=== PATIENT | female | born 1935 | race Caucasian/White ===

== ENCOUNTER → 2017-04-10 05:00 | Outpatient (REF) | payer MEDICARE, OTHER, SELFPAY ==
[2017-04-10 11:37] LABS: Hemoglobin 12.4 g/dl (12.0-15.0); Mean Corp Hgb Conc 32.6 g/gl (32-36); Mean Corpuscular Hgb 33.9 pg (27.0-32.0); Mean Corpuscular Volume 103.8 fL (81-99); Platelet Count 130 K/mm3 (150-450); RBC Distribution Width CV 14.9 % (11.6-14.6); RBC Distribution Width SD 55.7 fl (35.1-43.9); Red Blood Count 3.66 M/mm3 (4.2-5.4); White Blood Count 8.1 K/mm3 (4.4-11.0)
[2017-04-10 11:41] LABS: Scan Indicated on CBC? Y/N NO
[2017-04-10 11:52] LABS: Anion Gap 9 (5-15); BUN 53 mg/dL (7-18); BUN/Creat Ratio 44.9 RATIO (10-20); Calcium,Total 8.9 mg/dL (8.5-10.1); Chloride 99 mmol/L (98-107); Cholesterol 122 mg/dL (200); Creatinine, Serum 1.18 mg/dL (0.55-1.02); EST Glomerular Filtration Rate 47 mL/min (>60); Est Glom Filt Rate - Afr Amer 57 mL/min (>60); Glucose 300 mg/dL (70-110); High Density Lipoprotein 42 mg/dL; Potassium 3.2 mmol/L (3.5-5.1); Sodium Level 139 mmol/L (136-145); Triglycerides 102 mg/dL; Very Low Density Lipoprotein 20 mg/dL (5-40)
[2017-04-10 12:14] LABS: Hemoglobin A1c 8.7 % (4.2-6.3)
== END ==
LOC: OLS.WHLTSB 05:00
PROVIDERS: Visit Provider Family Medicine
DX: E11.9 Type 2 diabetes mellitus without complications (principal); I10 Essential (primary) hypertension; E78.5 Hyperlipidemia, unspecified; I25.10 Atherosclerotic heart disease of native coronary artery without angina pectoris
CPT/HCPCS: 36415; 80048; 80061; 83036; 85027

== ENCOUNTER → 2017-05-18 05:00 | Outpatient (REF) | payer MEDICARE, OTHER, SELFPAY ==
[2017-05-18 09:23] LABS: Absolute Neutrophil Count 9.4 X10^3/uL (2.0-7.7); Basophil# 0.02 X10^3/uL; Basophil% 0.2 % (0-1); Eosinophil# 0.23 X10^3/uL; Eosinophils% 1.8 % (0-5); Hematocrit 32.5 % (37-47); Hemoglobin 10.5 g/dl (12.0-15.0); Lymphocyte % 18.4 % (19-41); Mean Corp Hgb Conc 32.3 g/gl (32-36); Mean Corpuscular Hgb 32.8 pg (27.0-32.0); Mean Corpuscular Volume 101.6 fL (81-99); Monocyte# 0.98 X10^3/uL; Monocyte% 7.5 % (0-10); Neutrophil # 9.43 X10^3/uL (2.7-7.7); POSITIVE COUNT NO; POSITIVE DIFFERENTIAL NO; POSITIVE MORPHOLOGY NO; Platelet Count 115 K/mm3 (150-450); RBC Distribution Width SD 59.3 fl (35.1-43.9); White Blood Count 13.1 K/mm3 (4.4-11.0)
[2017-05-18 09:34] LABS: Anion Gap 9 (5-15); BUN 71 mg/dL (7-18); BUN/Creat Ratio 40.6 RATIO (10-20); Calcium,Total 8.5 mg/dL (8.5-10.1); Chloride 101 mmol/L (98-107); Creatinine, Serum 1.75 mg/dL (0.55-1.02); EST Glomerular Filtration Rate 30 mL/min (>60); Est Glom Filt Rate - Afr Amer 36 mL/min (>60); Glucose 77 mg/dL (74-106); Potassium 3.7 mmol/L (3.5-5.1); Sodium Level 139 mmol/L (136-145)
== END ==
LOC: OLS.WHLTSB 05:00
PROVIDERS: Visit Provider Family Medicine
DX: I10 Essential (primary) hypertension (principal); E11.9 Type 2 diabetes mellitus without complications; I25.10 Atherosclerotic heart disease of native coronary artery without angina pectoris
CPT/HCPCS: 36415; 80048; 85025

== ENCOUNTER → 2017-06-06 05:00 | Outpatient (REF) | payer MEDICARE, OTHER, SELFPAY ==
[2017-06-06 09:03] LABS: Anion Gap 8 (5-15); BUN 40 mg/dL (7-18); BUN/Creat Ratio 42.1 RATIO (10-20); Chloride 104 mmol/L (98-107); Creatinine, Serum 0.95 mg/dL (0.55-1.02); EST Glomerular Filtration Rate 60 mL/min (>60); Est Glom Filt Rate - Afr Amer 73 mL/min (>60); Glucose 70 mg/dL (74-106); Sodium Level 143 mmol/L (136-145)
== END ==
LOC: OLS.WHLTSB 05:00
PROVIDERS: Visit Provider Family Medicine
DX: E11.9 Type 2 diabetes mellitus without complications (principal); I10 Essential (primary) hypertension
CPT/HCPCS: 36415; 80048

== ENCOUNTER → 2017-07-16 05:00 | Outpatient (REF) | payer MEDICARE, OTHER, SELFPAY ==
[2017-07-16 09:24] LABS: Hemoglobin 11.2 g/dl (12.0-15.0); Mean Corp Hgb Conc 32.9 g/gl (32-36); Mean Corpuscular Hgb 33.1 pg (27.0-32.0); Mean Corpuscular Volume 100.6 fL (81-99); Platelet Count 267 K/mm3 (150-450); RBC Distribution Width CV 14.8 % (11.6-14.6); RBC Distribution Width SD 52.4 fl (35.1-43.9); Red Blood Count 3.38 M/mm3 (4.2-5.4); White Blood Count 8.3 K/mm3 (4.4-11.0)
[2017-07-16 09:31] LABS: Scan Indicated on CBC? Y/N NO
== END ==
LOC: OLS.WHLTSB 05:00
PROVIDERS: Visit Provider Family Medicine
DX: L89.619 Pressure ulcer of right heel, unspecified stage (principal)
CPT/HCPCS: 36415; 84134; 85027

== ENCOUNTER → 2017-10-15 05:00 | Outpatient (REF) | payer MEDICARE, OTHER, SELFPAY ==
[2017-10-15 09:25] LABS: Hematocrit 37.5 % (37-47); Hemoglobin 12.5 g/dl (12.0-15.0); Mean Corp Hgb Conc 33.3 g/gl (32-36); Mean Corpuscular Volume 98.9 fL (81-99); Platelet Count 178 K/mm3 (150-450); RBC Distribution Width CV 14.7 % (11.6-14.6); RBC Distribution Width SD 51.7 fl (35.1-43.9); Red Blood Count 3.79 M/mm3 (4.2-5.4); White Blood Count 8.7 K/mm3 (4.4-11.0)
[2017-10-15 09:38] LABS: Scan Indicated on CBC? Y/N NO
[2017-10-15 09:39] LABS: Anion Gap 7 (5-15); BUN 36 mg/dL (7-18); BUN/Creat Ratio 31.9 RATIO (10-20); Calcium,Total 9.3 mg/dL (8.5-10.1); Chloride 101 mmol/L (98-107); Creatinine, Serum 1.13 mg/dL (0.55-1.02); EST Glomerular Filtration Rate 49 mL/min (>60); Est Glom Filt Rate - Afr Amer 60 mL/min (>60); Glucose 135 mg/dL (74-106); Potassium 3.6 mmol/L (3.5-5.1); Sodium Level 139 mmol/L (136-145)
[2017-10-15 09:53] LABS: Hemoglobin A1c 7.5 % (4.2-6.3)
[2017-10-15 14:55] LABS: Cholesterol 112 mg/dL (200); High Density Lipoprotein 39 mg/dL; Triglycerides 95 mg/dL; Very Low Density Lipoprotein 19 mg/dL (5-40)
== END ==
LOC: OLS.WHLTSB 05:00
PROVIDERS: Visit Provider Family Medicine
DX: I25.10 Atherosclerotic heart disease of native coronary artery without angina pectoris (principal); I10 Essential (primary) hypertension; E78.5 Hyperlipidemia, unspecified; E11.9 Type 2 diabetes mellitus without complications
CPT/HCPCS: 36415; 80048; 80061; 83036; 85027

== ENCOUNTER → 2018-03-14 12:00 | Outpatient (REF) | payer MEDICARE, OTHER, SELFPAY ==
--- OUTSIDE RECORDS SUMMARY | 2018-04-30 19:24 | XMS RPT_ITS ---
:1935 Author Organization OHIP Care Team Providers Name Role Phone Marcus Terrazas Attending Unavailable Mk, Marcus Attending Unavailable Terrazas, Marcus Attending Unavailable [facility], [place] [facility] Attending Unavailable Terrazas, Marcus Attending Unavailable Terrazas, Marcus Attending Unavailable Terrazas, Marcus Attending Unavailable Terrazas, Marcus Attending Unavailable Terrazas, Marcus Attending Unavailable PROBLEMS PROBLEMS DATE TYPE CONDITION / CODE ATTENDING STATUS SOURCE 04/04/2018 Unknown N39.0 - Urinary tract Marcus Terrazas infection, site not Community specified / Hospital N39.0(ICD-10) Repository 12/21/2017 Unknown I10 - Essential Marcus Terrazas (primary) Community hypertension / Hospital I10(ICD-10) Repository 12/21/2017 Unknown E11.9 - Type 2 Marcus Terrazas diabetes mellitus Community without complications Hospital / E11.9(ICD-10) Repository 12/21/2017 Unknown E78.5 - Marcus Terrazas Hyperlipidemia, Community unspecified / Hospital E78.5(ICD-10) Repository 07/31/2017 Unknown L89.619 - Pressure Marcus Terrazas Active Ariel ulcer of right heel, Community unspecified stage / Hospital L89.619(ICD-10) Repository 07/10/2017 Unknown 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 Repository without angina pectoris / I25.10(ICD-10) PROCEDURES PROCEDURES No Procedure Records FoundRESULTS RESULTS CBC-COMPLETE BLOOD CNT Collected: 04/17/2018 Status: F Source: ARIEL NO DIFF 6:50 AM [facility] REPOSITORY Order Comment: ROOM 14 TYPE CODE TESTS RESULT OUT OF RANGE REFERENCE UNITS LAB L100.1000 4.4-11.0 K/mm3 Normal WBC 7.7 LAB L100.1200 4.2-5.4 M/mm3 Low RBC 3.59 LAB L100.1300 12.0-15.0 g/dl Low HGB 11.6 LAB L100.1400 37-47 % Normal HCT 37.6 LAB L100.1500 81-99 fL High MCV 104.7 LAB L100.1600 27.0-32.0 pg High MCH 32.3 LAB L100.1700 32-36 g/gl Low MCHC 30.9 LAB L100.1810 11.6-14.6 % High RDW CV 15.7 LAB L100.1820 35.1-43.9 fl High RDW SD 60.3 LAB L100.1900 150-450 K/mm3 Normal PLT 172 LAB L100.2000 6.2-12.0 fl Normal MPV 12.0 Performed By: #### L100.0500 #### [facility] [address] [place], [address] BASIC METABOLIC Collected: 04/17/2018 Status: F Source: ARIEL PROFILE (BMP) 6:50 AM [facility] REPOSITORY Order Comment: ROOM 14 TYPE CODE TESTS RESULT OUT OF RANGE REFERENCE UNITS LAB L501.0100 74-106 mg/dL High GLU 107 Result Comment: Fasting Glucose result from 100 to 125 mg/dL suggests IMPAIRED HOMEOSTASIS per A.D.A. criteria. Please note revised GLUCOSE reference range effective 2017. LAB L501.1000 7-18 mg/dL High BUN 38 LAB L501.1100 0.55-1.02 mg/dL High CREAT,SERUM 1.25 Result Comment: The validity of the calculated GFR AND GFRAA in patients over 70 years has not been determined. Clinical correlation is essential. LAB L501.1110 >60 mL/min Low EST GFR 44 Result Comment: Non- GFR Calc LAB L501.1115 >60 mL/min Low EST GFR - AA 53 Result Comment: GFR Calc LAB L501.1300 10-20 RATIO High BUN/CRE 30.4 LAB L501.2200 8.5-10.1 mg/dL CA Normal 9.1 LAB L501.5300 136-145 mmol/L NA Normal 141 LAB L501.5600 3.5-5.1 mmol/L K Normal 4.5 LAB L501.5900 98-107 mmol/L CL Normal 104 LAB L501.6100 21.0-32.0 mmol/L Normal CO2 30.0 LAB L501.6200 5-15 Normal GAP 7 Performed By: #### L500.2500, L500.4100 #### [facility] [address] [place], [address] LIPID PROFILE Collected: 04/17/2018 Status: F Source: HAPPY 6:50 AM [facility] REPOSITORY Order Comment: ROOM 14 TYPE CODE TESTS RESULT OUT OF RANGE REFERENCE UNITS LAB L501.4900 200 mg/dL Normal CHOL 116 Result Comment: <200 mg/dL Desirable 200-240 mg/dL Borderline >240 mg/dL High Risk LAB L501.5000 mg/dL Normal TRIG 85 Result Comment: The drugs N-Acetylcysteine and Metamizole may falsely depress this assay. Serum Triglycerides Reference Interval Normal <150 mg/dL Borderline high 150 - 199 mg/dL High 200 - 499 mg/dL Very High > or = 500 mg/dL LAB L501.6400 mg/dL Normal HDL 47 Result Comment: The drugs N-Acetylcysteine and Metamizole may falsely depress this assay. Reference Range HDL <40 mg/dL Low HDL Cholesterol HDL >or= 60 mg/dL High HDL Cholesterol LAB L501.6500 0-130 mg/dL Normal LDL 52 LAB L501.6600 5-40 mg/dL Normal VLDL 17 Performed By: #### L500.2500, L500.4100 #### [facility] [address] [place], [address] HEMOGLOBIN A1C Collected: 04/17/2018 Status: F Source: ARIEL 6:50 AM [facility] REPOSITORY Order Comment: ROOM 14 TYPE CODE TESTS RESULT OUT OF RANGE REFERENCE UNITS LAB L501.9985 4.2-6.3 % High HGB A1C 7.4 Performed By: #### L501.9985 #### [facility] [address] [place], [address] Observed: 03/14/2018 Status: F Source: ARIEL CULTURE, URINE 12:00 PM [facility] REPOSITORY VERIFIED COLLECTION METHOD WITH NURSE Urine Culture ORGANISM 1: Presumptive E. coli Gunpowder Count >100,000 Presumptive E. coli: REACTION Amoxacillin/Clavulanic Acid $ 4 S Ampicillin $ 8 S Ampicillin/Sulbactam $ 4 S Cefazolin $ <=4 S Cefepime $ <=1 S Ceftriaxone $ <=1 S Ciprofloxacin $ >=4 R ESBL - Ertapenim $$$ <=0.5 S Gentamicin $ <=1 S Imipenem *NF <=0.25 S Levofloxacin $ >=8 R Nitrofurantoin $ <=16 S Piperacillin/Tazobactam $$ <=4 S Tobramycin $ <=1 S Trimethoprim/Sulfametho $ >=320 R (NF) indicates non-formulary drug at [facility]. Approval by Infectious Disease Specialist required before non-formulary drugs may be ordered and/or dispensed. Performed By: #### M100.0650 #### [facility] [address] [place], [address] Observed: 02/05/2018 Status: F Source: ARIEL CULTURE, URINE 5:00 AM [facility] REPOSITORY Urine Culture Predominent Organism 4500 cfu/mL Presumptive E coli Below infection level. ORGANISM 1: Mixed Gram Pos AND Gram Neg Org Gunpowder Count 1000-10,000 MIX CULTURE Mixed contaminants. Submit a new specimen if indicated. Performed By: #### M100.0650 #### [facility] [address] [place], [address] CBC-COMPLETE BLOOD CNT Collected: 10/15/2017 Status: F Source: ARIEL NO DIFF 7:15 AM [facility] REPOSITORY Order Comment: 14 TYPE CODE TESTS RESULT OUT OF RANGE REFERENCE UNITS LAB L100.1000 4.4-11.0 K/mm3 Normal WBC 8.7 LAB L100.1200 4.2-5.4 M/mm3 Low RBC 3.79 LAB L100.1300 12.0-15.0 g/dl Normal HGB 12.5 LAB L100.1400 37-47 % Normal HCT 37.5 LAB L100.1500 81-99 fL Normal MCV 98.9 LAB L100.1600 27.0-32.0 pg High MCH 33.0 LAB L100.1700 32-36 g/gl Normal MCHC 33.3 LAB L100.1810 11.6-14.6 % High RDW CV 14.7 LAB L100.1820 35.1-43.9 fl High RDW SD 51.7 LAB L100.1900 150-450 K/mm3 Normal PLT 178 LAB L100.2000 6.2-12.0 fl Normal MPV 12.0 Performed By: #### L100.0500 #### [facility] [address] [place], [address] BASIC METABOLIC Collected: 10/15/2017 Status: F Source: ARIEL PROFILE (BMP) 7:15 AM [facility] REPOSITORY Order Comment: PLEASE ADD LIPID TO BLOOD FROM THIS MORNING TYPE CODE TESTS RESULT OUT OF RANGE REFERENCE UNITS LAB L501.0100 74-106 mg/dL High GLU 135 Result Comment: Fasting Glucose result greater than or equal to 126 mg/dL suggests DIABETES MELLITUS per A.D.A. criteria. Please note revised GLUCOSE reference range effective 2017. LAB L501.1000 7-18 mg/dL High BUN 36 LAB L501.1100 0.55-1.02 mg/dL High CREAT,SERUM 1.13 Result Comment: The validity of the calculated GFR AND GFRAA in patients over 70 years has not been determined. Clinical correlation is essential. LAB L501.1110 >60 mL/min Low EST GFR 49 Result Comment: Non- GFR Calc LAB L501.1115 >60 mL/min Normal EST GFR - AA 60 Result Comment: GFR Calc LAB L501.1300 10-20 RATIO High BUN/CRE 31.9 LAB L501.2200 8.5-10.1 mg/dL CA Normal 9.3 LAB L501.5300 136-145 mmol/L NA Normal 139 LAB L501.5600 3.5-5.1 mmol/L K Normal 3.6 LAB L501.5900 98-107 mmol/L CL Normal 101 LAB L501.6100 21.0-32.0 mmol/L Normal CO2 31.0 LAB L501.6200 5-15 Normal GAP 7 Performed By: #### L500.2500, L500.4100 #### [facility] [address] [place], [place], [address] LIPID PROFILE Collected: 10/15/2017 Status: F Source: HAPPY 7:15 AM [facility] REPOSITORY Order Comment: PLEASE ADD LIPID TO BLOOD FROM THIS MORNING TYPE CODE TESTS RESULT OUT OF RANGE REFERENCE UNITS LAB L501.4900 200 mg/dL Normal CHOL 112 Result Comment: <200 mg/dL Desirable 200-240 mg/dL Borderline >240 mg/dL High Risk LAB L501.5000 mg/dL Normal TRIG 95 Result Comment: The drugs N-Acetylcysteine and Metamizole may falsely depress this assay. Serum Triglycerides Reference Interval Normal <150 mg/dL Borderline high 150 - 199 mg/dL High 200 - 499 mg/dL Very High > or = 500 mg/dL LAB L501.6400 mg/dL Low HDL 39 Result Comment: The drugs N-Acetylcysteine and Metamizole may falsely depress this assay. Reference Range HDL <40 mg/dL Low HDL Cholesterol HDL >or= 60 mg/dL High HDL Cholesterol LAB L501.6500 0-130 mg/dL Normal LDL 54 LAB L501.6600 5-40 mg/dL Normal VLDL 19 Performed By: #### L500.2500, L500.4100 #### [facility] [address] [place], [place], [address] HEMOGLOBIN A1C Collected: 10/15/2017 Status: F Source: HAPPY 7:15 AM [facility] REPOSITORY Order Comment: 14 TYPE CODE TESTS RESULT OUT OF RANGE REFERENCE UNITS LAB L501.9985 4.2-6.3 % High HGB A1C 7.5 Performed By: #### L501.9985 #### [facility] [address] [facility] [address] [place], [place], [address] CBC-COMPLETE BLOOD CNT Collected: 07/16/2017 Status: F Source: ARIEL NO DIFF 7:15 AM [facility] REPOSITORY Order Comment: 14 TYPE CODE TESTS RESULT OUT OF RANGE REFERENCE UNITS LAB L100.1000 4.4-11.0 K/mm3 Normal WBC 8.3 LAB L100.1200 4.2-5.4 M/mm3 Low RBC 3.38 LAB L100.1300 12.0-15.0 g/dl Low HGB 11.2 LAB L100.1400 37-47 % Low HCT 34.0 LAB L100.1500 81-99 fL High MCV 100.6 LAB L100.1600 27.0-32.0 pg High MCH 33.1 LAB L100.1700 32-36 g/gl Normal MCHC 32.9 LAB L100.1810 11.6-14.6 % High RDW CV 14.8 LAB L100.1820 35.1-43.9 fl High RDW SD 52.4 LAB L100.1900 150-450 K/mm3 Normal PLT 267 LAB L100.2000 6.2-12.0 fl Normal MPV 11.0 Performed By: #### L100.0500 #### [facility] [address] [place], [place], [address] PREALBUMIN Collected: 07/16/2017 Status: F Source: ARIEL 7:15 AM [facility] REPOSITORY Order Comment: 14 TYPE CODE TESTS RESULT OUT OF REFERENCE UNITS RANGE LAB L506.0500 20.0-40.0 mg/dL Low PREALBUMIN 13.0 Performed By: #### L506.0500 #### [facility] [address] [place], [address] BASIC METABOLIC Collected: 06/06/2017 Status: F Source: ARIEL PROFILE (BMP) 7:55 AM [facility] REPOSITORY Order Comment: ROOM 14 TYPE CODE TESTS RESULT OUT OF RANGE REFERENCE UNITS LAB L501.0100 74-106 mg/dL Low GLU 70 Result Comment: Please note revised GLUCOSE reference range effective 2017. LAB L501.1000 7-18 mg/dL High BUN 40 LAB L501.1100 0.55-1.02 mg/dL Normal CREAT,SERUM 0.95 Result Comment: The validity of the calculated GFR AND GFRAA in patients over 70 years has not been determined. Clinical correlation is essential. LAB L501.1110 >60 mL/min Normal EST GFR 60 Result Comment: Non- GFR Calc LAB L501.1115 >60 mL/min Normal EST GFR - AA 73 Result Comment: GFR Calc LAB L501.1300 10-20 RATIO High BUN/CRE 42.1 LAB L501.2200 8.5-10.1 mg/dL CA Normal 9.0 LAB L501.5300 136-145 mmol/L NA Normal 143 LAB L501.5600 3.5-5.1 mmol/L K Normal 4.0 LAB L501.5900 98-107 mmol/L CL Normal 104 LAB L501.6100 21.0-32.0 mmol/L Normal CO2 31.0 LAB L501.6200 5-15 Normal GAP 8 Performed By: #### L500.2500 #### [facility] [address] [place], [place], [address] CBC W/DIFF, AUTOMATED Collected: 05/18/2017 Status: F Source: HAPPY 6:54 AM [facility] REPOSITORY Order Comment: ROOM 14 TYPE CODE TESTS RESULT OUT OF RANGE REFERENCE UNITS LAB L100.1000 4.4-11.0 K/mm3 High WBC 13.1 LAB L100.1200 4.2-5.4 M/mm3 Low RBC 3.20 LAB L100.1300 12.0-15.0 g/dl Low HGB 10.5 LAB L100.1400 37-47 % Low HCT 32.5 LAB L100.1500 81-99 fL High MCV 101.6 LAB L100.1600 27.0-32.0 pg High MCH 32.8 LAB L100.1700 32-36 g/gl Normal MCHC 32.3 LAB L100.1810 11.6-14.6 % High RDW CV 16.0 LAB L100.1820 35.1-43.9 fl High RDW SD 59.3 LAB L100.1900 150-450 K/mm3 Low PLT 115 LAB L100.2000 6.2-12.0 fl Normal MPV 12.0 LAB L100.2100 47-70 % High NEUT% 72.0 LAB L100.2200 19-41 % Low LY% 18.4 LAB L100.2300 0-10 % Normal MONO% 7.5 LAB L100.2400 0-5 % Normal EO% 1.8 LAB L100.2500 0-1 % Normal BASO% 0.2 LAB L100.2550 0.0-0.9 % Normal IM GRAN % 0.100 Result Comment: IG% - Immature Granulocytes (promyelocytes, myelocytes and metamyelocytes) > 1% indicates that a LEFT SHIFT is Present. LAB L100.2620 2.0-7.7 X10 3/uL High Absolute Neut 9.4 LAB L100.2720 0.83-4.51 X10 3/ul Normal Absolute Lymph 2.40 Performed By: #### L100.0100 #### [facility] [address] [place], [address] BASIC METABOLIC Collected: 05/18/2017 Status: F Source: HAPPY PROFILE ([facility]) 6:54 AM [facility] REPOSITORY Order Comment: ROOM 14 TYPE CODE TESTS RESULT OUT OF RANGE REFERENCE UNITS LAB L501.0100 74-106 mg/dL Normal GLU 77 Result Comment: Please note revised GLUCOSE reference range effective 2017. LAB L501.1000 7-18 mg/dL High BUN 71 LAB L501.1100 0.55-1.02 mg/dL High CREAT,SERUM 1.75 Result Comment: The validity of the calculated GFR AND GFRAA in patients over 70 years has not been determined. Clinical correlation is essential. LAB L501.1110 >60 mL/min Low EST GFR 30 Result Comment: Non- GFR Calc LAB L501.1115 >60 mL/min Low EST GFR - AA 36 Result Comment: GFR Calc LAB L501.1300 10-20 RATIO High BUN/CRE 40.6 LAB L501.2200 8.5-10.1 mg/dL CA Normal 8.5 LAB L501.5300 136-145 mmol/L NA Normal 139 LAB L501.5600 3.5-5.1 mmol/L K Normal 3.7 LAB L501.5900 98-107 mmol/L CL Normal 101 LAB L501.6100 21.0-32.0 mmol/L Normal CO2 29.0 LAB L501.6200 5-15 Normal GAP 9 Performed By: #### L500.2500 #### [facility] [address] [place], [address] Observed: 05/17/2017 Status: F Source: HAPPY CULTURE, URINE 7:00 AM [facility] REPOSITORY Urine Culture ORGANISM 1: Proteus mirabilis Gunpowder Count >100,000 ORGANISM 2: Enterococcus faecalis Gunpowder Count >100,000 Proteus mirabilis: REACTION Amoxacillin/Clavulanic Acid $ <=2 S Ampicillin $ <=2 S Ampicillin/Sulbactam $ <=2 S Cefazolin $ <=4 S Cefepime $ <=1 S Ceftriaxone $ <=1 S Ciprofloxacin $ <=0.25 S Ertapenim $$$ <=0.5 S Gentamicin $ <=1 S Levofloxacin $ <=0.12 S Nitrofurantoin $ 128 R Piperacillin/Tazobactam $$ <=4 S Tobramycin $ <=1 S Trimethoprim/Sulfametho $ <=20 S (NF) indicates non-formulary drug at [facility]. Approval by Infectious Disease Specialist required before non-formulary drugs may be ordered and/or dispensed. Enterococcus faecalis: REACTION Ampicillin $ <=2 S Benzylpenicillin NF 2 S Ciprofloxacin $ <=0.5 S Gentamicin SYN-S S Levofloxacin $ 0.5 S Linezolid $$$$ 2 S Nitrofurantoin $ <=16 S Streptomycin $ SYN-S S Tetracycline NF >=16 R Vancomycin $ <=0.5 S (NF) indicates non-formulary drug at [facility]. Approval by Infectious Disease Specialist required before non-formulary drugs may be ordered and/or dispensed. * CLSI guidelines does not recommend testing of cephalosporins. This interpretation is deduced from Beta-lactam/penicillin results. Performed By: #### M100.0650 #### [facility] [address] [place], [address] BASIC METABOLIC Collected: 05/09/2017 Status: F Source: ARIEL PROFILE (BMP) 7:15 AM [facility] REPOSITORY Order Comment: ROOM 14 TYPE CODE TESTS RESULT OUT OF RANGE REFERENCE UNITS LAB L501.0100 74-106 mg/dL Normal GLU 98 LAB L501.1000 7-18 mg/dL High BUN 41 LAB L501.1100 0.55-1.02 mg/dL Normal 1.01 CREAT,SERUM Result Comment: The validity of the calculated GFR AND GFRAA in patients over 70 years has not been determined. Clinical correlation is essential. LAB L501.1110 >60 mL/min Low EST GFR 56 Result Comment: Non- GFR Calc LAB L501.1115 >60 mL/min Normal EST GFR - AA 68 Result Comment: GFR Calc LAB L501.1300 10-20 RATIO High BUN/CRE 40.6 LAB L501.2200 8.5-10.1 mg/dL CA Normal 9.0 LAB L501.5300 136-145 mmol/L NA Normal 141 LAB L501.5600 3.5-5.1 mmol/L K Normal 3.6 LAB L501.5900 98-107 mmol/L CL Normal 104 LAB L501.6100 21.0-32.0 mmol/L Normal CO2 31.0 LAB L501.6200 5-15 Normal GAP 6 Performed By: #### L500.2500, L500.4100 #### [facility] [address] [place], [address] LIPID PROFILE Collected: 05/09/2017 Status: F Source: ARIEL 7:15 AM [facility] REPOSITORY Order Comment: ROOM 14 TYPE CODE TESTS RESULT OUT OF RANGE REFERENCE UNITS LAB L501.4900 200 mg/dL Normal CHOL 100 Result Comment: <200 mg/dL Desirable 200-240 mg/dL Borderline >240 mg/dL High Risk LAB L501.5000 mg/dL Normal TRIG 94 Result Comment: The drugs N-Acetylcysteine and Metamizole may falsely depress this assay. Serum Triglycerides Reference Interval Normal <150 mg/dL Borderline high 150 - 199 mg/dL High 200 - 499 mg/dL Very High > or = 500 mg/dL LAB L501.6400 mg/dL Low HDL 37 Result Comment: The drugs N-Acetylcysteine and Metamizole may falsely depress this assay. Reference Range HDL <40 mg/dL Low HDL Cholesterol HDL >or= 60 mg/dL High HDL Cholesterol LAB L501.6500 0-130 mg/dL Normal LDL 44 LAB L501.6600 5-40 mg/dL Normal VLDL 19 Performed By: #### L500.2500, L500.4100 #### [facility] [address] [place], [address] CBC-COMPLETE BLOOD CNT Collected: 05/09/2017 Status: F Source: ARIEL NO DIFF 7:15 AM [facility] REPOSITORY Order Comment: ROOM 14 TYPE CODE TESTS RESULT OUT OF RANGE REFERENCE UNITS LAB L100.1000 4.4-11.0 K/mm3 Normal WBC 7.7 LAB L100.1200 4.2-5.4 M/mm3 Low RBC 3.53 LAB L100.1300 12.0-15.0 g/dl Normal HGB 12.0 LAB L100.1400 37-47 % Low HCT 36.1 LAB L100.1500 81-99 fL High MCV 102.3 LAB L100.1600 27.0-32.0 pg High MCH 34.0 LAB L100.1700 32-36 g/gl Normal MCHC 33.2 LAB L100.1810 11.6-14.6 % High RDW CV 15.4 LAB L100.1820 35.1-43.9 fl High RDW SD 56.6 LAB L100.1900 150-450 K/mm3 Normal PLT 170 LAB L100.2000 6.2-12.0 fl Normal MPV 11.4 Performed By: #### L100.0500 #### [facility] [address] [place], [place], [address] HEMOGLOBIN A1C Collected: 05/09/2017 Status: F Source: HAPPY 7:15 AM [facility] REPOSITORY Order Comment: ROOM 14 TYPE CODE TESTS RESULT OUT OF RANGE REFERENCE UNITS LAB L501.9985 4.2-6.3 % High HGB A1C 8.3 Performed By: #### L501.9985 #### [facility] [address] [place], [address] ALLERGIES ALLERGIES DATE TYPE / CODE NAME / CODE REACTION SEVERITY SOURCE 10/27/2013 [facility]/ [id number] [address](SNOMED XNORM) Repository CT) ENCOUNTERS ENCOUNTERS ADMIT/DISCHARGE ACCOUNT ADMITTING ENCOUNTER LOCATION SOURCE NUMBER CLASS 04/17/2018 [id number] Ambulatory Ariel Ariel 2 [facility] ing:OLS.[facility]LTS Repository B 03/14/2018 [id number] Ambulatory Ariel Holden 1 [facility] ing:[facility]S.[facility] Repository B 02/05/2018 [id number] Ambulatory Holden Holden 4 [facility] ing:[facility]S.[facility] Repository B 10/15/2017 [id number] Ambulatory Ariel Ariel 6 [facility] ing:[facility]S.[facility] Repository B 07/16/2017 [id number] Ambulatory Ariel Holden 3 [facility] ing:[facility]S.[facility] Repository B 06/06/2017 [id number] Ambulatory Holden Holden 6 [facility] Hospital ing:[facility]S.[facility]TS Repository B 05/18/2017 [id number] Ambulatory Ariel Ariel 0 [facility] Hospital ing:[facility]S.[facility]TS Repository B 05/17/2017 [id number] Ambulatory Holden Holden 7 [facility] ing:OLS.[facility]TS Repository B 05/09/2017 [id number] Ambulatory Ariel Holden 2 [facility] Hospital ing:[facility]S.[facility]TS Repository B PAYERS PAYERS ENCOUNTER GUARANTOR PAYER SUBSCRIBER SOURCE 04/17/2018 [facility] [address]Xdc: (330) Number: Effective Repository [phone] () Date:2018-04-17 03/14/2018 Megan Hawkins Primary Megan MERCADO Insurance:MEDICARE BurnsDOB: [facility] A olicy [id number] [address]Cmy: (330) Number: Repository [phone] () [id number] Date:2018-03-14 03/14/2018 Secondary Megan Elliott Holden Insurance:AARPPolicy BurnsDOB: Community Number: [id number] [id number] Repository Date:6432-24-59[address], [place] [address]MX: 03/14/2018 Tertiary NOT GIVENUNK Holden Insurance:SELF PAY [facility] Number: Effective Repository Date:2018-03-14 02/05/2018 Megan Hawkins Primary NOT GIVENUNK [place] Insurance:SELF PAY [facility] [address]Lpj: (330) Number: Effective Repository [phone] () Date:2018-02-05 10/15/2017 Megan Griffith5 Primary Megan [place] Insurance:MEDICARE BurnsDOB: Community [facility] [place] [facility] [id number] [facility] Hospital [address]Uly: (330) Number: Repository [phone] () [id number] Date:2017-10-15 10/15/2017 Secondary Megan Elliott Holden Insurance:AARPPolicy BurnsDOB: Community Number: [id number] [id number] Repository Date:5213-30-69[address]FDF, [place] [address]PR: 10/15/2017 Tertiary NOT GIVENUNK Holden Insurance:SELF PAY [facility] Number: Effective Repository Date:2017-10-15 07/16/2017 Megan Elliott [id number] Primary eMgan [place] Insurance:MEDICARE BurnsDOB: [facility] [place], [place] [facility] [id number] Memorial Hospital [address]Dmo: Number: Repository [phone] [id number] () Date:2017-07-16 07/16/2017 Secondary Megan Elliott Ariel Insurance:AARPPolicy BurnsDOB: Community Number: [id number] [id number] Repository Date:0416-45-40[address], [place] [address]NC: 07/16/2017 Tertiary NOT GIVENUNK Ariel Insurance:SELF PAY [facility] Number: Effective Repository Date:2017-07-16 06/06/2017 Megan Hawkins Primary Megan [place] Insurance:MEDICARE BurnsDOB: [place] [address] [place] [facility] [id number] Memorial Hospital [address]Cww: (330) Number: Repository [phone] () [id number] Date:2017-06-06 06/06/2017 Secondary Megan Elliott Holden Insurance:AARPPolicy BurnsDOB: Community Number: [id number] [id number] Repository Date:2414-68-26[address]DT, [place] [address]XH: 06/06/2017 Tertiary NOT GIVENUNK Ariel Insurance:SELF PAY [facility] Number: Effective Repository Date:2017-06-06 05/18/2017 Megan Hawkins Primary Megan Fierro [place] Insurance:MEDICARE BurnsDOB: [facility] [place] [facility] [id number] Memorial Hospital [address]Euu: Number: Repository [phone] [id number] () Date:2017-05-18 05/18/2017 Secondary Megan Elliott Ariel Insurance:AARPPolicy BurnsDOB: Community Number: [id number] [id number] Repository Date:3508-40-20[address], [place] [address]SK: 05/18/2017 Tertiary NOT GIVENUNK Holden Insurance:SELF PAY [facility] Number: Effective Repository Date:2017-05-18 05/17/2017 Megan Hawkins Primary NOT GIVENUNK Holden [address] Insurance:SELF PAY [facility] [address]Epc: (330) Number: Effective Repository [phone] () Date:2017-05-17 05/09/2017 Megan Griffith5 Primary NOT GIVENUNK Ariel [address] Insurance:SELF PAY [address] [address]Sje: (330) Number: [facility] [phone] () Date:2017-05-09
== END ==
LOC: OLS.WHLTSB 12:00
PROVIDERS: Visit Provider Family Medicine
DX: N39.0 Urinary tract infection, site not specified (principal)
CPT/HCPCS: 87086; 87088; 87186

== ENCOUNTER → 2018-04-17 06:00 | Outpatient (REF) | payer MEDICARE, OTHER, SELFPAY ==
[2018-04-17 08:39] LABS: Hematocrit 37.6 % (37-47); Hemoglobin 11.6 g/dl (12.0-15.0); Mean Corp Hgb Conc 30.9 g/gl (32-36); Mean Corpuscular Hgb 32.3 pg (27.0-32.0); Mean Corpuscular Volume 104.7 fL (81-99); Platelet Count 172 K/mm3 (150-450); RBC Distribution Width CV 15.7 % (11.6-14.6); RBC Distribution Width SD 60.3 fl (35.1-43.9); Red Blood Count 3.59 M/mm3 (4.2-5.4); Scan Indicated on CBC? Y/N NO; White Blood Count 7.7 K/mm3 (4.4-11.0)
[2018-04-17 08:50] LABS: Anion Gap 7 (5-15); BUN 38 mg/dL (7-18); BUN/Creat Ratio 30.4 RATIO (10-20); Calcium,Total 9.1 mg/dL (8.5-10.1); Chloride 104 mmol/L (98-107); Cholesterol 116 mg/dL (200); Creatinine, Serum 1.25 mg/dL (0.55-1.02); EST Glomerular Filtration Rate 44 mL/min (>60); Est Glom Filt Rate - Afr Amer 53 mL/min (>60); Glucose 107 mg/dL (74-106); High Density Lipoprotein 47 mg/dL; Potassium 4.5 mmol/L (3.5-5.1); Sodium Level 141 mmol/L (136-145); Triglycerides 85 mg/dL; Very Low Density Lipoprotein 17 mg/dL (5-40)
[2018-04-17 08:55] LABS: Hemoglobin A1c 7.4 % (4.2-6.3)
--- OUTSIDE RECORDS SUMMARY | 2018-06-21 21:40 | XMS RPT_ITS ---
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, [address] BASIC METABOLIC Collected: 04/17/2018 Status: F Source: ARIEL PROFILE (BMP) 6:50 AM [facility] Order Comment: ROOM 14 TYPE CODE [...] 7 Performed By: #### L500.2500, L500.4100 #### [facility] [address] [place], [address] LIPID PROFILE Collected: 04/17/2018 Status: F Source: MORGAN 6:50 AM [facility]POS[facility] Order Comment: ROOM 14 TYPE CODE [...] 17 Performed By: #### L500.2500, L500.4100 #### [facility] [address] [place], [address] HEMOGLOBIN A1C Collected: 04/17/2018 Status: F Source: ARIEL 6:50 AM [facility]POS[facility] Order Comment: ROOM 14 TYPE CODE TESTS RESULT OUT OF RANGE REFERENCE UNITS LAB L501.9985 4.2-6.3 % High HGB A1C 7.4 Performed By: #### L501.9985 #### [facility] [address] [place], [address] Observed: 03/14/2018 Status: F Source: ARIEL CULTURE, URINE 12:00 PM [facility] REPOSITORY VERIFIED COLLECTION METHOD WITH NURSE Urine Culture ORGANISM 1: Presumptive E. coli [place] Count >100,000 Presumptive E. coli: REACTION Amoxacillin/Clavulanic [...] >=320 R (NF) indicates non-formulary drug at [facility]. Approval by Infectious Disease Specialist required before non-formulary drugs may be ordered and/or dispensed. Performed By: #### M100.0650 #### [facility] [address] [place], [address] Observed: 02/05/2018 Status: F Source: ARIEL CULTURE, URINE 5:00 AM [facility] Urine Culture Predominent Organism 4500 cfu/mL Presumptive E coli Below infection level. ORGANISM 1: Mixed Gram Pos AND Gram Neg Org [place] Count 1000-10,000 MIX CULTURE Mixed contaminants. Submit a new specimen if indicated. Performed By: #### M100.0650 #### [facility] [address] [place], [address] CBC-COMPLETE BLOOD CNT Collected: 10/15/2017 Status: F Source: ARIEL NO DIFF 7:15 AM [facility] Order Comment: 14 TYPE CODE TESTS [...] MPV 12.0 Performed By: #### L100.0500 #### [facility] [address] [place], [address] BASIC METABOLIC Collected: 10/15/2017 Status: F Source: ARIEL PROFILE (BMP) 7:15 AM [facility] Order Comment: PLEASE ADD LIPID TO [...] 7 Performed By: #### L500.2500, L500.4100 #### [facility] [address] [place], [place], [address] LIPID PROFILE Collected: 10/15/2017 Status: F Source: MORGAN 7:15 AM [facility] Order Comment: PLEASE ADD LIPID TO [...] 19 Performed By: #### L500.2500, L500.4100 #### [facility] [address] [place], [place], [address] HEMOGLOBIN A1C Collected: 10/15/2017 Status: F Source: MORGAN 7:15 AM [facility] Order Comment: 14 TYPE CODE TESTS RESULT OUT OF RANGE REFERENCE UNITS LAB L501.9985 4.2-6.3 % High HGB A1C 7.5 Performed By: #### L501.9985 #### [facility] [address] [facility] [address] [place], [place], [address] CBC-COMPLETE BLOOD CNT Collected: 07/16/2017 Status: F Source: ARIEL NO DIFF 7:15 AM [facility] Order Comment: 14 TYPE CODE TESTS [...] MPV 11.0 Performed By: #### L100.0500 #### [facility] [address] [place], [place], [address] PREALBUMIN Collected: 07/16/2017 Status: F Source: ARIEL 7:15 AM [facility] Order Comment: 14 TYPE CODE TESTS RESULT OUT OF REFERENCE UNITS RANGE LAB L506.0500 20.0-40.0 mg/dL Low PREALBUMIN 13.0 Performed By: #### L506.0500 #### [facility] [address] [place], [address] BASIC METABOLIC Collected: 06/06/2017 Status: F Source: ARIEL PROFILE (BMP) 7:55 AM [facility] Order Comment: ROOM 14 TYPE CODE [...] GAP 8 Performed By: #### L500.2500 #### [facility] [address] [place], [place], [address] CBC W/DIFF, AUTOMATED Collected: 05/18/2017 Status: F Source: MORGAN 6:54 AM [facility] Order Comment: ROOM 14 TYPE CODE [...] Lymph 2.40 Performed By: #### L100.0100 #### [facility] [address] [place], [address] BASIC METABOLIC Collected: 05/18/2017 Status: F Source: MORGAN PROFILE ([facility]) 6:54 AM [facility] Order Comment: ROOM 14 TYPE CODE [...] GAP 9 Performed By: #### L500.2500 #### [facility] [address] [place], [address] Observed: 05/17/2017 Status: F Source: MORGAN CULTURE, URINE 7:00 AM [facility] Urine Culture ORGANISM 1: Proteus mirabilis [place] Count >100,000 ORGANISM 2: Enterococcus faecalis [place] Count >100,000 Proteus mirabilis: REACTION Amoxacillin/Clavulanic Acid [...] <=20 S (NF) indicates non-formulary drug at [facility]. Approval by Infectious Disease Specialist required before non-formulary drugs may be ordered and/or dispensed. Enterococcus faecalis: REACTION Ampicillin $ <=2 S Benzylpenicillin NF 2 S Ciprofloxacin $ <=0.5 S Gentamicin SYN-S S Levofloxacin $ 0.5 S Linezolid $$$$ 2 S Nitrofurantoin $ <=16 S Streptomycin $ SYN-S S Tetracycline NF >=16 R Vancomycin $ <=0.5 S (NF) indicates non-formulary drug at [facility]. Approval by Infectious Disease Specialist required before non-formulary drugs may be ordered and/or dispensed. * CLSI guidelines does not recommend testing of cephalosporins. This interpretation is deduced from Beta-lactam/penicillin results. Performed By: #### M100.0650 #### [facility] [address] [place], [address] BASIC METABOLIC Collected: 05/09/2017 Status: F Source: ARIEL PROFILE (BMP) 7:15 AM [facility] Order Comment: ROOM 14 TYPE CODE [...] 6 Performed By: #### L500.2500, L500.4100 #### [facility] [address] [place], [address] LIPID PROFILE Collected: 05/09/2017 Status: F Source: ARIEL 7:15 AM [facility] Order Comment: ROOM 14 TYPE CODE [...] 19 Performed By: #### L500.2500, L500.4100 #### [facility] [address] [place], [address] CBC-COMPLETE BLOOD CNT Collected: 05/09/2017 Status: F Source: ARIEL NO DIFF 7:15 AM [facility] Order Comment: ROOM 14 TYPE CODE [...] MPV 11.4 Performed By: #### L100.0500 #### [facility] [address] [place], [place], [address] HEMOGLOBIN A1C Collected: 05/09/2017 Status: F Source: MORGAN 7:15 AM [facility] Order Comment: ROOM 14 TYPE CODE TESTS RESULT OUT OF RANGE REFERENCE UNITS LAB L501.9985 4.2-6.3 % High HGB A1C 8.3 Performed By: #### L501.9985 #### [facility] [address] [facility] [place], [address] ALLERGIES ALLERGIES DATE TYPE / CODE NAME / CODE REACTION SEVERITY SOURCE 10/27/2013 [facility]/ [id number]([facility] [address](SNOMED XNORM) Repository CT) ENCOUNTERS ENCOUNTERS ADMIT/DISCHARGE ACCOUNT ADMITTING ENCOUNTER LOCATION SOURCE NUMBER CLASS 04/17/2018 [id number] Ambulatory Ariel Ariel 2 [facility] ing:OLS.WHLTS Repository B 03/14/2018 [id number] Ambulatory [place] 1 [facility] ing:OLS.WHLTS Repository B 02/05/2018 [id number] [place] 4 [facility] ing:OLS.WHLTS Repository B 10/15/2017 [id number] Ambulatory Ariel Ariel 6 [facility] ing:OLS.WHLTS Repository B 07/16/2017 [id number] Ambulatory [place] 3 [facility] ing:OLS.WHLTS Repository B 06/06/2017 [id number] Ambulatory [place] 6 [facility] Hospital ing:OLS.WHLTS Repository B 05/18/2017 [id number] Ambulatory Ariel Ariel 0 [facility] Hospital ing:OLS.WHLTS Repository B 05/17/2017 [id number] Amb[place] 7 [facility] ing:OLS.WHLTS Repository B 05/09/2017 [id number] Ambulatory Ari[place] 2 [facility] Hospital ing:OLS.WHLTS Repository B PAYERS PAYERS ENCOUNTER GUARANTOR PAYER SUBSCRIBER SOURCE 04/17/2018 [facility]SELF [facility] [address]Wlv: [phone]) Number: Effective Repository [phone] () Date:2018-04-17 03/14/2018 Megan Hawkins Primary Megan MERCADO Insurance:MEDICARE BurnsDOB: [facility] PART A olicy [id number] [place] [address]Ukt: (330) Number: Repository [phone] () [id number] Date:2018-03-14 03/14/2018 Secondary Megan Elliott [place] Insurance:AARPPolicy BurnsDOB: Community Number: [id number] [id number] Repository Date:0742-47-[address], [place] [address]BQ: 03/14/2018 Tertiary NOT GIVENUNK [place] Insurance:SELF PAY [facility] Number: Effective Repository Date:2018-03-14 02/05/2018 Megan Hawkins Primary [place]K [place] Insurance:SELF PAY [facility] [address]Ecb: [phone]) Number: Effective Repository [phone] () Date:2018-02-05 10/15/2017 Megan Griffith5 Primary Megan [place]CADO Insurance:MEDICARE BurnsDOB: Community [facility] [id number] Mexico Behavioral Health Institute [facility] [address]Ype: (330) Number: Repository [phone] () [id number] Date:2017-10-15 10/15/2017 Secondary Megan Elliott [place] Insurance:AARPPolicy BurnsDOB: Community Number: [id number] [facility] [id number] Repository Date:[id number], [place] [address]ER: 10/15/2017 Tertiary NOT GIVENUNK [place] Insurance:SELF PAY [facility] Number: Effective Repository Date:2017-10-15 07/16/2017 Megan Elliott [id number] Primary Megan MERCADO Insurance:MEDICARE BurnsDOB: [facility], [facility] A [facility] [id number] Mexico Behavioral Health Institute at [facility] [address]Aea: Number: Repository [phone] [id number] () Date:2017-07-16 07/16/2017 Secondary Megan Elliott [place] Insurance:AARPPolicy BurnsDOB: Community Number: [id number] [id number] Repository Date:[id number], [place] [address]LR: 07/16/2017 Tertiary NOT GIVENUNK [place] Insurance:SELF PAY [facility] Number: Effective Repository Date:2017-07-16 06/06/2017 Megan Hawkins Primary Megan MERCADO Insurance:MEDICARE BurnsDOB: Community [facility] [place] [id number] Mexico Behavioral Health Institute at [facility] [address]Miz: (330) Number: Repository [phone] () [id number] Date:2017-06-06 06/06/2017 Secondary Megan Elliott [place] Insurance:AARPPolicy BurnsDOB: Community Number: [id number] [id number] Repository Date:8232-23-15[address], [place] [address]HY: 06/06/2017 Tertiary NOT GIVENUNK [place] Insurance:SELF PAY [facility] Number: Effective Repository Date:2017-06-06 05/18/2017 Megan Hawkins Primary Megan Fierro [place] Insurance:MEDICARE BurnsDOB: [facility] [place] [id number] Mexico Behavioral Health Institute at [facility] [place] [address]Zir: Number: Repository [phone] [id number] () Date:2017-05-18 05/18/2017 Secondary Megan Elliott [place] Insurance:AARPPolicy BurnsDOB: Community Number: [id number] [id number] Repository Date:3693-12-56[address], [place] [address]HM: 05/18/2017 Tertiary NOT GIVENUNK [place] Insurance:SELF PAY [facility] Number: Effective Repository Date:2017-05-18 05/17/2017 Megan Hawkins Primary NOT GIVENUNK [place] [address] Insurance:SELF PAY [facility] [address]Xgi: [phone]) Number: Effective Repository [phone] () Date:2017-05-17 05/09/2017 Megan Griffith5 Primary NOT GIVENUNK Ariel [address] Insurance:SELF PAY Community [address] [address]Zex: (330) Number: [facility] [phone] () Date:2017-05-09
== END ==
LOC: OLS.WHLTSB 06:00
PROVIDERS: Visit Provider Family Medicine
DX: E11.9 Type 2 diabetes mellitus without complications (principal); I10 Essential (primary) hypertension; E78.5 Hyperlipidemia, unspecified; I25.10 Atherosclerotic heart disease of native coronary artery without angina pectoris
CPT/HCPCS: 36415; 80048; 80061; 83036; 85027

== ENCOUNTER 2018-05-02 08:52 | Emergency (ER) | payer MEDICARE, SELFPAY ==
[2018-05-02 08:53] VITALS: BP 187/101; PULSE 65; RESP 15; TEMP 35.7; O2SAT 100; BMI 27.5
[2018-05-02 09:21] LABS: Bedside Glucose 87 mg/dL (70-110)
--- NOTE | 2018-05-02 09:25 | CT_ITS ---
We are attempting to reach Power Hernandez MD to discuss findings. An addendum with communication details will be sent when the communication is complete. STUDY: CT FACIAL BONES WITHOUT CONTRAST REASON FOR EXAM: Female, 82 years old. Large left-sided frontal scalp contusion with loss of consciousness after fall. RADIATION DOSAGE (If Supplied By Facility): CTDIvol = ( 33.98 ) mGy, DLP = ( 2478.72 ) mGycm TECHNIQUE: The patient was scanned in a multi detector CT scanner. Sagittal and coronal images were reconstructed. Reformations are technically limited with less than optimal positioning. Individualized dose optimization techniques were used for this CT. COMPARISON: CT of the head dated May 02, 2018. FINDINGS: There is a large left paramedian forehead and frontal scalp contusion and hematoma. There is also right-sided preseptal orbital soft tissue edema. Normal orbital jacobs and orbital contents. Normal nasal bones and anterior nasal spine. There are severe degenerative changes of the temporomandibular joints with the deformity of the left mandibular condyle possibly related to previous surgery. The jacobs of the frontal sinuses, jacobs of maxillary sinuses, zygomatic arches, pterygoid plates and mandible otherwise have a normal appearance without obvious acute fracture. There is grade 1 spondylolisthesis at C3-4 with disc space narrowing. This is apparently related to left-sided fractures of the articulating facets at C3 and C4. There are mucous retention cysts and/or polyps within bilateral maxillary sinuses. There is mild mucoperiosteal thickening within the left maxillary sinus. There is mild hyperostosis frontalis interna. CT/Sinus/Facial Bone IMPRESSION: 1. Grade 1 spondylolisthesis at C3-4 probably related to fractures of the posterior elements of C3 and possibly C4. This is a potentially unstable fracture. 2. Larger soft tissue contusion or hematoma involving the left paramedian forehead and frontal scalp. Electronically Signed: Carmen Terrazas MD at 10:17 EST , Service support ,
--- NOTE | 2018-05-02 09:25 | CT_ITS ---
STUDY: CT BRAIN WITHOUT CONTRAST REASON FOR EXAM: Female, 82 years old. Positive loss of consciousness after falling in bathroom. RADIATION DOSAGE (If Supplied By Facility): CTDIvol = ( 33.98 ) mGy, DLP = ( 2478.72 ) mGycm TECHNIQUE: Transaxial CT imaging of the brain was performed without administration of intravenous contrast material. Multiplanar reformations are submitted for interpretation. Individualized dose optimization techniques were used for this CT. COMPARISON: None. FINDINGS: There is a large hematoma involving the anterior left paramedian frontal scalp and forehead. There is soft tissue emphysema within the soft tissues of the anterior scalp. The hematoma measures 6 cm in transverse dimension by 1.2 cm in AP dimension by 4.8 cm in cephalocaudal dimension. Punctate calcifications are visible from the scalp. Normal calvarium. There is mild cerebral atrophy with widening of the extra-axial spaces and ventricular dilatation. There are areas of decreased attenuation within the white matter tracts of the supratentorial brain, consistent with microvascular disease changes. There are small punctate calcifications of the basal ganglia which are seen in the aging brain as a normal variant. Normal brainstem. There is mild cerebellar atrophy. There is no intracranial hemorrhage. There is moderate atherosclerotic calcification of the intracranial arteries. Mucous retention cysts are visible within bilateral maxillary sinuses. CT/Brain/Head without Contrast IMPRESSION: 1. Chronic involutional changes of the brain. 2. No CT evidence of acute intracranial hemorrhage. 3. Large left-sided frontal scalp contusion and hematoma with laceration. Electronically Signed: Carmen Terrazas MD at 10:08 EST , Service support ,
--- NOTE | 2018-05-02 09:25 | RAD_ITS ---
STUDY: X-RAY - PELVIS REASON FOR EXAM: Female, 82 years old. Pelvic pain after fall. TECHNIQUE: One view of the pelvis was obtained. COMPARISON: Prior comparison studies are not available for review at this time. FINDINGS: There is a non-specific bowel gas pattern. Normal visualized soft tissue structures. There is diffuse demineralization of the osseous structures. There is narrowing with cortical sclerosis and osteophyte formation of the sacroiliac joint consistent with degenerative osteoarthritic changes. The sacrum and iliac wings are obscured by bowel gas and stool. Normal visualized bilateral superior and inferior pubic rami. Normal pubic symphysis. Normal ischial tuberosities. Normal visualized right femoral head. Normal right acetabulum. There is moderate articular joint space narrowing of the right hip. Normal visualized left femoral head. Normal left acetabulum. There is moderate articular joint space narrowing of the left hip. There is normal curvature of the lumbar spine convexity towards left. There is narrowing of the imaged lumbar disc spaces with endplate osteophytes consistent with degenerative disc disease. RAD/Pelvis 1 or 2 Views IMPRESSION: 1. Osteoporosis. 2. Narrowing of both hip joints. 3. Degenerative changes of the sacroiliac joints. Electronically Signed: Carmen Terrazas MD at 10:52 EST , Service support ,
--- NOTE | 2018-05-02 09:25 | RAD_ITS ---
STUDY: X-RAY CHEST REASON FOR EXAM: Female, 82 years old. Loss of consciousness after fall with laceration above left eye. TECHNIQUE: Single AP portable view of the chest. COMPARISON: October 27, 2013. FINDINGS: Patient has had a sternotomy. Cardiac monitoring leads are present. The lungs are expanded. There is heterogeneous left basilar airspace consolidation possibly representing pneumonia. There is perihilar interstitial thickening present in both lungs. There is blunting of the left lateral costophrenic angle suggesting small pleural effusion. There is mild cardiac enlargement. Normal mediastinum and nesha. There is prominence of the pulmonary hilar arteries without peripheral pulmonary vascular congestion, suggesting pulmonary hypertension. There is atherosclerotic calcification of the aortic arch with tortuosity. There is demineralization of the osseous structures. There degenerative changes of both shoulders. There is no demonstrated abnormality of the visualized soft tissue structures of the upper abdomen. RAD/Chest 1 View (Portable) IMPRESSION: 1. Cardiomegaly and mild pulmonary congestion. 2. Heterogeneous airspace consolidation is visible in the left lobe lower lobe possibly representing pneumonia. Electronically Signed: Carmen Terrazas MD at 10:49 EST , Service support ,
--- NOTE | 2018-05-02 09:25 | CT_ITS ---
STUDY: CT CERVICAL SPINE WITHOUT CONTRAST REASON FOR EXAM: Female, 82 years old. Closed head injury with recent fall and loss of consciousness with neck pain and cervical spine fracture. RADIATION DOSAGE (If Supplied By Facility): CTDIvol = ( 33.98 ) mGy, DLP = ( 2478.72 ) mGycm TECHNIQUE: High resolution transaxial imaging was performed without contrast material. Sagittal and coronal images were reconstructed. Individualized dose optimization techniques were used for this CT. COMPARISON: CT of the facial bones dated May 02, 2018. FINDINGS: Normal craniovertebral junction. There are degenerative changes of the anterior atlantoaxial articulation. Normal odontoid process. There is acute angulation at C3-4 related to fracture of the left posterior articular facets at C3 and possibly C4. There maybe an associated left-sided perched facet. The bones appear osteopenic. The remaining imaged cervical and upper thoracic vertebral bodies have generally normal height and alignment. C2-3: Normal endplates. Normal disc height and morphology. Normal central canal and intervertebral neuroforamina. C3-4: There is anterolisthesis at this level with uncovering of the disc. There appears to be a fracture of the left-sided articulating facets of C3-4. There is mild bilateral neural foraminal narrowing. There is mild central acquired canal stenosis. C4-5: Normal endplates. Normal disc height and morphology. Normal central canal and intervertebral neuroforamina. C5-6: There is narrowing of the disc space with irregularity of the endplates possibly related to small Schmorl's nodes and/or erosions. The neural foramina are mildly narrowed. There is no significant central acquired canal stenosis. C6-7: There is narrowing of the disc space with irregular endplates suggesting possible degenerative disc disease and or erosions. The neural foramina are patent. There is no significant central acquired canal stenosis. C7-T1: Normal endplates. Normal disc height and morphology. Normal central canal and intervertebral neuroforamina. There is a right-sided thyroid nodule measuring approximately 1.6 cm in greatest dimension. There is a left-sided thyroid mass measuring approximately 2.6 x 1.5 x 2.1 cm. The thyroid in general appears atrophic. Lung apices appear to be clear. There is atherosclerotic calcification of the carotid bulbs. Paraspinal soft tissues are within normal limits. The nasopharynx, oropharynx, hypopharynx and larynx have a grossly normal appearance. The subglottic trachea has a grossly normal appearance. CT/Spine Cervical without Contras IMPRESSION: 1. Acute fracture at C3-4 with anterolisthesis. This is a potentially unstable fracture. 2. Osteopenia. 3. 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 4. Right-sided thyroid nodule and left-sided thyroid mass.. Electronically Signed: Carmen Terrazas MD at 10:31 EST , Service support ,
--- NOTE | 2018-05-02 09:25 | RAD_ITS ---
STUDY: X-RAY - LEFT SHOULDER REASON FOR EXAM: Female, 82 years old. Left sided shoulder pain after fall. TECHNIQUE: 3 view(s) of the shoulder. COMPARISON: None. FINDINGS: There is mild degenerative arthrosis of the glenohumeral articulation. There is degenerative arthrosis of the acromioclavicular joint without inferior osseous spur formation. Normal acromion. There is demineralization of the humerus and visualized osseous structures. The soft tissue structures are unremarkable. There are prominent bronchovascular markings of the left lung apex. The patient has had a sternotomy. RAD/Shoulder min 2 Views IMPRESSION: 1. Osteopenia. 2. Degenerative arthropathy of the left shoulder. 3. Pulmonary congestion. Electronically Signed: Carmen Terrazas MD at 10:55 EST , Service support ,
--- NOTE | 2018-05-02 09:26 | EKG12_ITS ---
Test Reason : FALL Blood Pressure : / mmHG Vent. Rate : 061 BPM Atrial Rate : 061 BPM P-R Int : 000 ms QRS Dur : 122 ms QT Int : 486 ms P-R-T Axes : 000 079 -76 degrees QTc Int : 489 ms Atrial fibrillation with premature ventricular or aberrantly conducted complexes Inferior infarct , age undetermined Abnormal ECG Confirmed by TUSHAR VICTORIA, MARCY ([id number]), sports editor PREETI LYONS ([id number]) on 05/07/2018 8:34:26 AM Referred By: JAM Confirmed By:MARCY FINLEY MD
[2018-05-02 09:43] LABS: Absolute Lymphocyte Count 1.63 X10^3/ul (0.83-4.51); Absolute Neutrophil Count 4.4 X10^3/uL (2.0-7.7); Basophil# 0.02 X10^3/uL; Basophil% 0.3 % (0-1); Eosinophil# 0.24 X10^3/uL; Eosinophils% 3.4 % (0-5); Hematocrit 34.2 % (37-47); Hemoglobin 10.9 g/dl (12.0-15.0); Lymphocyte # 1.63 X10^3/ul (4.0); Mean Corp Hgb Conc 31.9 g/gl (32-36); Mean Corpuscular Hgb 32.7 pg (27.0-32.0); Mean Corpuscular Volume 102.7 fL (81-99); Mean Platelet Vol. 11.7 fl (6.2-12.0); Monocyte# 0.75 X10^3/uL; Monocyte% 10.6 % (0-10); Neutrophil # 4.43 X10^3/uL (2.7-7.7); Neutrophil % 62.6 % (47-70); POSITIVE COUNT NO; POSITIVE DIFFERENTIAL NO; POSITIVE MORPHOLOGY NO; Platelet Count 123 K/mm3 (150-450); RBC Distribution Width CV 15.5 % (11.6-14.6); RBC Distribution Width SD 58.1 fl (35.1-43.9); Red Blood Count 3.33 M/mm3 (4.2-5.4); White Blood Count 7.1 K/mm3 (4.4-11.0)
[2018-05-02 09:52] LABS: International Normalized Ratio 1.2; Prothrombin Time (Protime)PT. 14.8 SECONDS (11.7-14.9)
[2018-05-02 09:58] LABS: Partial Thromboplast Time 36.3 Seconds (24.1-36.2)
[2018-05-02 10:00] LABS: Anion Gap 5 (5-15); BUN 23 mg/dL (7-18); Chloride 108 mmol/L (98-107); Creatinine, Serum 0.72 mg/dL (0.55-1.02); EST Glomerular Filtration Rate 83 mL/min (>60); Est Glom Filt Rate - Afr Amer 101 mL/min (>60); Estimated Creatinine Clearance 43.63 ml/min; Glucose 85 mg/dL (74-106); Potassium 3.9 mmol/L (3.5-5.1); Sodium Level 143 mmol/L (136-145)
[2018-05-02 10:20] LABS: Bedside Glucose 90 mg/dL (70-110)
[2018-05-02 10:21] VITALS: BP 187/72; PULSE 67; RESP 18; O2SAT 99
[2018-05-02] MEDS: Diphth,Pertuss(Acell),Tet Vac 0.5 ML Vial IM (10:23)
--- NOTE | 2018-05-02 10:29 | NURSING ---
CALLED [facility] FOR TRANSPORT.
--- NOTE | 2018-05-02 10:34 | ED.RN ---
Pt c/o left neck pain during triage and all over neck pain by the end of the initial assessment. Pt admitted pain to c-spine with palpation and a c-collar was placed for stability.
--- NOTE | 2018-05-02 10:40 | ED.VISSUMM ---
- ER Visit Summary Date of Service: 05/02/18 Chief Complaint: Syncope History of Present Illness: The patient is a 82 F who presents from assisted living. She has a history of coronary disease, diabetes, hypertension, and hyperlipidemia. She resides at an assisted living facility. She got up this morning and took her water pill for peripheral edema. She sat on the toilet. When she got up she passed out. She fell forward and struck her face. She was unsure how long she was down. She was seen in bed by nursing around 6:45 AM this morning and presented to the ED just before 9 AM today. She injured her face and complains of face, head, and neck pain. She also complains of bilateral shoulder pain. Worse on the left. She has a history of chronic shoulder pain. Denies chest pain or shortness of breath. Denies abdominal pain, vomiting, or GI symptoms. Denies back pain. Denies hip or leg pain. Denies any weakness or numbness. She does take aspirin but denies any other blood thinners. She is unsure of her tetanus status. Physical Examination: Afebrile and vital signs unremarkable except for a blood pressure of 187/101. Patient has a left forehead hematoma and laceration, 3cm. She has swelling and ecchymosis to her left face and a left subconjunctival hemorrhage. Neck is maintained in a cervical collar, but she has diffuse tenderness. Chest nontender. Heart regular. Lungs clear. Abdomen soft and nontender. Patient has bilateral shoulder pain, worse on the left side with light touch. No deformity. Good range of motion. Neurovascular intact distally. Hips and legs are atraumatic. Cranial nerves grossly intact. Normal strength and sensation in her extremities. Normal reflexes. Test Results: EKG showed what appears to be atrial fibrillation at a rate of 61. Hemoglobin 10.9 and platelets 123, stable. Chemistry panel unremarkable. INR 1.2 and PTT 36.3. Urinalysis pending. Troponin normal. Chest x-ray, pelvis x-ray, and left shoulder x-rays are pending official reads, but I do not see anything acute. CT brain showed a frontal hematoma. No intra-cranial hemorrhage. Facial CT shows the hematoma but no other fractures or abnormalities. C-spine CT shows grade 1 spondylolisthesis and fractures of the left C3 and C4 facets concerning for an unstable fracture. Emergency Department Course and Treatment: Patient placed on a monitor. IV access obtained. Cervical collar was placed in the ED. Workup was ordered. Tetanus was updated. Labs were all fairly unremarkable. Urinalysis is still pending at the time of this dictation. I am not sure what caused her syncopal episode. From a trauma standpoint, she has concerns for unstable cervical spine fractures. Right now she is neurovascular intact. No issues with breathing. We will continue to monitor. She will need care at a trauma center. I spoke with Dr. Singh who accepted the patient to [facility] emergency department. Patient will be transferred by ground with supporting paperwork and records as we do have ground transport available within 10-15 minutes. At the time of this dictation, I did not have time to anesthetize, clean, explore, and suture her forehead laceration prior to transport. Treatment Plan: As above Disposition: Transfer to [facility] emergency department and trauma center Impression: 1. Syncopal episode 2. Forehead hematoma and laceration 3. C3 and C4 facet fractures This note was generated with [employer] dictation software. It may contain incorrect words, spelling, and punctuation that were not noted in review of the chart prior to signing ED Disposition - Plan for ED Patient: Referrals: Marcus Terrazas MD [Primary Care Provider] -
--- NOTE | 2018-05-02 10:49 | ED.DCSUM_ITS ---
- ER Visit Summary Date of Service: 05/02/18 Chief Complaint: Syncope History of Present Illness: The patient is a 82 F who presents from assisted living. She has a history of coronary disease, diabetes, hypertension, and hyperlipidemia. She resides at an assisted living facility. She got up this morning and took her water pill for peripheral edema. She sat on the toilet. When she got up she passed out. She fell forward and struck her face. She was unsure how long she was down. She was seen in bed by nursing around 6:45 AM this morning and presented to the ED just before 9 AM today. She injured her face and complains of face, head, and neck pain. She also complains of bilateral shoulder pain. Worse on the left. She has a history of chronic shoulder pain. Denies chest pain or shortness of breath. Denies abdominal pain, vomiting, or GI symptoms. Denies back pain. Denies hip or leg pain. Denies any weakness or numbness. She does take aspirin but denies any other blood thinners. She is unsure of her tetanus status. Physical Examination: Afebrile and vital signs unremarkable except for a blood pressure of 187/101. Patient has a left forehead hematoma and laceration, 3cm. She has swelling and ecchymosis to her left face and a left subconjunctival hemo rrhage. Neck is maintained in a cervical collar, but she has diffuse tenderness. Chest nontender. Heart regular. Lungs clear. Abdomen soft and nontender. Patient has bilateral shoulder pain, worse on the left side with light touch. No deformity. Good range of motion. Neurovascular intact distally. Hips and legs are atraumatic. Cranial nerves grossly intact. Normal strength and sensation in her extremities. Normal reflexes. Test Results: EKG showed what appears to be atrial fibrillation at a rate of 61. Hemoglobin 10.9 and platelets 123, stable. Chemistry panel unremarkable. INR 1.2 and PTT 36.3. Urinalysis pending. Troponin normal. Chest x-ray, pelvis x-ray, and left shoulder x-rays are pending official reads, but I do not see anything acute. CT brain showed a frontal hematoma. No intra-cranial hemorrhage. Facial CT shows the hematoma but no other fractures or abnormalities. C-spine CT shows grade 1 spondylolisthesis and fractures of the left C3 and C4 facets concerning for an unstable fracture. Emergency Department Course and Treatment: Patient placed on a monitor. IV access obtained. Cervical collar was placed in the ED. Workup was ordered. Tetanus was updated. Labs were all fairly unremarkable. Urinalysis is still pending at the time of this dictation. I am not sure what caused her syncopal episode. From a trauma standpoint, she has concerns for unstable cervical spine fractures. Right now she is neurovascular intact. No issues with breathing. We will continue to monitor. She will need care at a trauma center. I spoke with Dr. Singh who accepted the patient to [facility] emergency department. Patient will be transferred by ground with supporting paperwork and records as we do have ground transport available within 10-15 minutes. At the time of this dictation, I did not have time to anesthetize, clean, explore, and suture her forehead laceration prior to transport. Treatment Plan: As above Disposition: Transfer to [facility] emergency department and trauma center Impression: 1. Syncopal episode 2. Forehead hematoma and laceration 3. C3 and C4 facet fractures This note was generated with [employer] dictation software. It may contain incorrect words, spelling, and punctuation that were not noted in review of the chart prior to signing ED Disposition - Plan for ED Patient: Referrals: Marcus Terrazas MD [Primary Care Provider] -
[2018-05-02 11:20] VITALS: BP 174/70; PULSE 74; RESP 19; O2SAT 99
--- NOTE | 2018-05-02 11:35 | ED.RN ---
Spoke with pt's nephew Shree. She speaks of him as her POA though there is no paper defining him as such. He is aware of the pt's injuries and is meeting pt at [facility] ED.
== END 2018-05-02 11:00 | disposition short-term general hospital (02) ==
PROVIDERS: Emergency Provider Emergency Medicine; Family Provider Family Medicine; PCP Family Medicine
DX: R55 Syncope and collapse (principal); S01.81XA Laceration without foreign body of other part of head, initial encounter; S12.200A Unspecified displaced fracture of third cervical vertebra, initial encounter for closed fracture; S12.300A Unspecified displaced fracture of fourth cervical vertebra, initial encounter for closed fracture; W18.12XA Fall from or off toilet with subsequent striking against object, initial encounter; Y93.9 Activity, unspecified; Y92.002 Bathroom of unspecified non-institutional (private) residence as the place of occurrence of the external cause; Y99.9 Unspecified external cause status; E11.9 Type 2 diabetes mellitus without complications; I10 Essential (primary) hypertension; E78.5 Hyperlipidemia, unspecified; I25.10 Atherosclerotic heart disease of native coronary artery without angina pectoris; H11.32 Conjunctival hemorrhage, left eye; I48.91 Unspecified atrial fibrillation; M43.12 Spondylolisthesis, cervical region; Z23 Encounter for immunization
CPT/HCPCS: 70450; 70486; 71045; 72125; 72170; 73030; 80048; 82962; 84484; 85025; 85610; 85730; 90715; 93005; 99285; J7030; J7040; A4216

== ENCOUNTER 2018-07-18 10:21 | Day surgery (SDC) | payer MEDICARE, SELFPAY ==
[2018-07-15 10:30] VITALS: BMI 27.5
[2018-07-18] VITALS (7 sets, daily range): BP systolic 117–152; BP diastolic 53–97; PULSE 83–94; RESP 14–18; TEMP 35.7–36.5; O2SAT 100; BMI 29.4
[2018-07-18 10:46] LABS: Bedside Glucose 128 mg/dL (70-110)
--- NOTE | 2018-07-18 11:50 | OP.ENDO_ITS ---
07/18/2018 Marcus Terrazas [address] [place] [address] Re : Upper GI endoscopy procedure for Megan Garcia Dear Dr. Terrazas This procedure was performed on July. My impressions and recommendations are as follows: Impressions : - Clotted blood in the cardia. - An externally removable PEG placement was successfully completed. - No specimens collected. Recommendations : - Discharge patient to a intermediate. - Please follow the post-PEG recommendations including: external bolster 1 cm from abdominal wall, change dressing once per day, NPO x4 hrs then water today, may use PEG today for meds and water, may use PEG tomorrow for feedings, check site for bleeding q 4 hrs, clean site with soap and water daily and dry thoroughly and clean site daily with half-strength hydrogen peroxide for three days, then soap and water daily. - Resume aspirin at prior dose in 3 days. My findings are described in the full procedure note, which is enclosed. If I can be of further assistance, please feel free to contact me at Doctor phone number(s): , Work: . Sincerely, dArian Kaur MD 07/18/2018 11:49:39 AM This report has been signed electronically.
== END 2018-07-18 12:50 | disposition home or self-care (01) ==
LOC: EN 10:23 → AC 10:24
PROVIDERS: Family Provider Family Medicine; PCP Family Medicine; Referring Provider Family Medicine; Visit Provider Surgery
PROC: 0DH64UZ Insertion of Feeding Device into Stomach, Percutaneous Endoscopic Approach (ICD-10-PCS; CPT 43246; principal; 2018-07-18 10:55)
DX: K92.2 Gastrointestinal hemorrhage, unspecified (principal); R13.12 Dysphagia, oropharyngeal phase; I10 Essential (primary) hypertension; E11.9 Type 2 diabetes mellitus without complications; E78.5 Hyperlipidemia, unspecified; I25.10 Atherosclerotic heart disease of native coronary artery without angina pectoris
CPT/HCPCS: 43246; 82962; J7120

== ENCOUNTER → 2018-09-30 06:50 | Outpatient (REF) | payer MEDICARE, SELFPAY ==
[2018-07-18 10:40] VITALS: BMI 29.4
[2018-09-30 07:59] LABS: Absolute Lymphocyte Count 1.98 X10^3/ul (0.83-4.51); Absolute Neutrophil Count 3.4 X10^3/uL (2.0-7.7); Basophil# 0.02 X10^3/uL; Basophil% 0.3 % (0-1); Eosinophil# 0.35 X10^3/uL; Eosinophils% 5.6 % (0-5); Hematocrit 35.5 % (37-47); Lymphocyte # 1.98 X10^3/ul (4.0); Lymphocyte % 31.8 % (19-41); Mean Platelet Vol. 13.3 fl (6.2-12.0); Neutrophil # 3.38 X10^3/uL (2.7-7.7); Neutrophil % 54.3 % (47-70); Platelet Count 132 K/mm3 (150-450); RBC Distribution Width CV 16.1 % (11.6-14.6); RBC Distribution Width SD 59.2 fl (35.1-43.9); Red Blood Count 3.55 M/mm3 (4.2-5.4); White Blood Count 6.2 K/mm3 (4.4-11.0)
[2018-09-30 08:01] LABS: Anion Gap 2 (5-15); BUN 62 mg/dL (7-18); BUN/Creat Ratio 79.3 RATIO (10-20); Calcium,Total 9.3 mg/dL (8.5-10.1); Chloride 108 mmol/L (98-107); Creatinine, Serum 0.78 mg/dL (0.55-1.02); EST Glomerular Filtration Rate 75 mL/min (>60); Est Glom Filt Rate - Afr Amer 91 mL/min (>60); Glucose 108 mg/dL (74-106); Potassium 4.4 mmol/L (3.5-5.1); Sodium Level 140 mmol/L (136-145)
[2018-09-30 08:12] LABS: POSITIVE COUNT NO; POSITIVE DIFFERENTIAL NO; POSITIVE MORPHOLOGY NO
== END ==
LOC: OLS.WHLCAR 06:50
PROVIDERS: Visit Provider Family Medicine
DX: I48.91 Unspecified atrial fibrillation (principal); D64.9 Anemia, unspecified; E11.9 Type 2 diabetes mellitus without complications; I10 Essential (primary) hypertension; E78.5 Hyperlipidemia, unspecified
CPT/HCPCS: 36415; 80048; 85025

== ENCOUNTER → 2018-10-08 05:00 | Outpatient (REF) | payer MEDICARE, SELFPAY ==
[2018-07-18 10:40] VITALS: BMI 29.4
[2018-10-08 07:22] LABS: Absolute Lymphocyte Count 0.98 X10^3/ul (0.83-4.51); Absolute Neutrophil Count 10.1 X10^3/uL (2.0-7.7); Basophil# 0.02 X10^3/uL; Basophil% 0.2 % (0-1); Eosinophil# 0.03 X10^3/uL; Eosinophils% 0.3 % (0-5); Hematocrit 34.6 % (37-47); Hemoglobin 10.9 g/dl (12.0-15.0); Lymphocyte # 0.98 X10^3/ul (4.0); Lymphocyte % 8.3 % (19-41); Mean Corp Hgb Conc 31.5 g/gl (32-36); Mean Corpuscular Hgb 31.5 pg (27.0-32.0); Mean Platelet Vol. 13.9 fl (6.2-12.0); Monocyte# 0.58 X10^3/uL; Monocyte% 4.9 % (0-10); Neutrophil # 10.11 X10^3/uL (2.7-7.7); Neutrophil % 86.1 % (47-70); POSITIVE COUNT NO; POSITIVE DIFFERENTIAL NO; POSITIVE MORPHOLOGY NO; Platelet Count 85 K/mm3 (150-450); RBC Distribution Width CV 16.2 % (11.6-14.6); RBC Distribution Width SD 57.4 fl (35.1-43.9); Red Blood Count 3.46 M/mm3 (4.2-5.4); White Blood Count 11.7 K/mm3 (4.4-11.0)
[2018-10-08 07:24] LABS: Anion Gap 4 (5-15); BUN 79 mg/dL (7-18); BUN/Creat Ratio 71.8 RATIO (10-20); Chloride 103 mmol/L (98-107); EST Glomerular Filtration Rate 51 mL/min (>60); Est Glom Filt Rate - Afr Amer 61 mL/min (>60); Glucose 247 mg/dL (74-106); Potassium 4.5 mmol/L (3.5-5.1); Sodium Level 136 mmol/L (136-145)
[2018-10-08 18:53] LABS: Color, Urine Yellow (Yellow); Glucose, Dipstick Normal (Normal); Ketone-Dipstick Negative (Negative); Leukocyte Esterase-Dipstick 500 /ul (Negative); Nitrite-Dipstick Negative (Negative); Occult Blood-Urine 10 /ul (Negative); Protein-Dipstick 15 mg/dl (Negative); Urine Bilirubin Dipstick Negative (Negative); Urine Clarity Cloudy (Clear); Urine Urobilinogen Normal (Normal)
== END ==
LOC: OLS.WHLCAR 05:00
PROVIDERS: Visit Provider Family Medicine
DX: R50.9 Fever, unspecified (principal)
CPT/HCPCS: 36415; 80048; 81002; 85025; 87077; 87086; 87088; 87186

== ENCOUNTER → 2018-10-31 05:00 | Outpatient (REF) | payer MEDICARE, SELFPAY ==
[2018-07-18 10:40] VITALS: BMI 29.4
[2018-10-31 10:08] LABS: Absolute Lymphocyte Count 1.21 X10^3/uL (0.83-4.51); Absolute Neutrophil Count 4.7 X10^3/uL (2.0-7.7); Basophil# 0.03 X10^3/uL; Basophil% 0.4 % (0-1); Eosinophil# 0.33 X10^3/uL; Eosinophils% 4.8 % (0-5); Hematocrit 29.9 % (37-47); Hemoglobin 9.5 g/dL (12.0-15.0); Lymphocyte # 1.21 X10^3/ul (4.0); Lymphocyte % 17.7 % (19-41); Mean Corp Hgb Conc 31.8 g/dL (32-36); Mean Corpuscular Volume 100.7 fL (81-99); Monocyte# 0.57 X10^3/uL; Monocyte% 8.4 % (0-10); NRBC Flagged by Analyzer 0 % (0-5); Neutrophil # 4.65 X10^3/uL (2.7-7.7); Neutrophil % 68.3 % (47-70); Platelet Count 127 K/mm3 (150-450); RBC Distribution Width CV 16.5 % (11.6-14.6); Red Blood Count 2.97 M/mm3 (4.2-5.4); White Blood Count 6.8 K/mm3 (4.4-11.0)
[2018-10-31 10:16] LABS: Anion Gap 7 (5-15); BUN 45 mg/dL (7-18); Calcium,Total 8.9 mg/dL (8.5-10.1); Chloride 106 mmol/L (98-107); Creatinine, Serum 0.74 mg/dL (0.55-1.02); EST Glomerular Filtration Rate 80 mL/min (>60); Est Glom Filt Rate - Afr Amer 97 mL/min (>60); Glucose 200 mg/dL (74-106); Potassium 3.8 mmol/L (3.5-5.1); Sodium Level 143 mmol/L (136-145)
[2018-10-31 12:33] LABS: Anisocytosis 1+; Differential Comment SCANNED; Platelet Estimate SLT DEC (ADEQ)
== END ==
LOC: OLS.WHLCAR 05:00
PROVIDERS: Visit Provider Family Medicine
DX: D53.9 Nutritional anemia, unspecified (principal)
CPT/HCPCS: 36415; 80048; 85025

== ENCOUNTER → 2018-12-03 04:30 | Outpatient (REF) | payer MEDICARE, SELFPAY ==
[2018-07-18 10:40] VITALS: BMI 29.4
[2018-12-03 06:43] LABS: Absolute Lymphocyte Count 1.45 X10^3/uL (0.83-4.51); Absolute Neutrophil Count 4.5 X10^3/uL (2.0-7.7); Basophil# 0.04 X10^3/uL; Basophil% 0.6 % (0-1); Eosinophil# 0.47 X10^3/uL; Eosinophils% 6.7 % (0-5); Hematocrit 27.2 % (37-47); Hemoglobin 8.1 g/dL (12.0-15.0); Lymphocyte # 1.45 X10^3/ul (4.0); Lymphocyte % 20.7 % (19-41); Mean Corp Hgb Conc 29.8 g/dL (32-36); Mean Corpuscular Hgb 29.7 pg (27.0-32.0); Mean Corpuscular Volume 99.6 fL (81-99); Mean Platelet Vol. 12.7 fl (6.2-12.0); Monocyte# 0.52 X10^3/uL; Monocyte% 7.4 % (0-10); NRBC Flagged by Analyzer 0 % (0-5); Neutrophil # 4.49 X10^3/uL (2.7-7.7); Neutrophil % 64.3 % (47-70); Platelet Count 131 K/mm3 (150-450); Red Blood Count 2.73 M/mm3 (4.2-5.4)
[2018-12-03 07:02] LABS: Anion Gap 6 (5-15); BUN 44 mg/dL (7-18); BUN/Creat Ratio 64.1 RATIO (10-20); Calcium,Total 8.9 mg/dL (8.5-10.1); Chloride 110 mmol/L (98-107); Creatinine, Serum 0.69 mg/dL (0.55-1.02); EST Glomerular Filtration Rate 87 mL/min (>60); Est Glom Filt Rate - Afr Amer 106 mL/min (>60); Glucose 144 mg/dL (74-106); Potassium 4.3 mmol/L (3.5-5.1); Sodium Level 145 mmol/L (136-145)
== END ==
LOC: OLS.WHLCAR 04:30
PROVIDERS: Visit Provider Family Medicine
DX: S12.200D Unspecified displaced fracture of third cervical vertebra, subsequent encounter for fracture with routine healing (principal); M62.81 Muscle weakness (generalized); R26.9 Unspecified abnormalities of gait and mobility; R13.12 Dysphagia, oropharyngeal phase; E11.00 Type 2 diabetes mellitus with hyperosmolarity without nonketotic hyperglycemic-hyperosmolar coma (NKHHC)
CPT/HCPCS: 36415; 80048; 85025

== ENCOUNTER → 2018-12-31 | Outpatient (REF) | payer MEDICARE, SELFPAY ==
[2018-07-18 10:40] VITALS: BMI 29.4
[2018-12-31 08:36] LABS: Absolute Neutrophil Count 3.6 X10^3/uL (2.0-7.7); Basophil# 0.03 X10^3/uL; Basophil% 0.5 % (0-1); Eosinophil# 0.35 X10^3/uL; Eosinophils% 5.9 % (0-5); Hematocrit 32.5 % (37-47); Hemoglobin 9.6 g/dL (12.0-15.0); Lymphocyte % 23.5 % (19-41); Mean Corp Hgb Conc 29.5 g/dL (32-36); Mean Corpuscular Volume 98.2 fL (81-99); Mean Platelet Vol. 13.4 fl (6.2-12.0); Monocyte# 0.55 X10^3/uL; Monocyte% 9.2 % (0-10); NRBC Flagged by Analyzer 0 % (0-5); Neutrophil # 3.62 X10^3/uL (2.7-7.7); Neutrophil % 60.7 % (47-70); Platelet Count 119 K/mm3 (150-450); RBC Distribution Width CV 17.2 % (11.6-14.6); RBC Distribution Width SD 62.2 fl (35.1-43.9); Red Blood Count 3.31 M/mm3 (4.2-5.4)
[2018-12-31 08:49] LABS: Anion Gap 3 (5-15); BUN 44 mg/dL (7-18); BUN/Creat Ratio 60.4 RATIO (10-20); Chloride 101 mmol/L (98-107); Creatinine, Serum 0.73 mg/dL (0.55-1.02); EST Glomerular Filtration Rate 82 mL/min (>60); Est Glom Filt Rate - Afr Amer 99 mL/min (>60); Glucose 161 mg/dL (74-106); Potassium 4.4 mmol/L (3.5-5.1); Sodium Level 141 mmol/L (136-145)
== END | disposition home or self-care (01) ==
LOC: OLS.WHLCAR 05:00
PROVIDERS: Visit Provider Family Medicine
DX: E11.00 Type 2 diabetes mellitus with hyperosmolarity without nonketotic hyperglycemic-hyperosmolar coma (NKHHC) (principal)
CPT/HCPCS: 36415; 80048; 85025

== ENCOUNTER → 2019-01-28 05:00 | Outpatient (REF) | payer SELFPAY ==
[2018-07-18 10:40] VITALS: BMI 29.4
[2019-01-28 07:27] LABS: Absolute Lymphocyte Count 1.22 X10^3/uL (0.83-4.51); Absolute Neutrophil Count 6.5 X10^3/uL (2.0-7.7); Basophil# 0.03 X10^3/uL; Basophil% 0.3 % (0-1); Eosinophil# 0.24 X10^3/uL; Eosinophils% 2.7 % (0-5); Hematocrit 28.1 % (37-47); Lymphocyte # 1.22 X10^3/ul (4.0); Lymphocyte % 13.9 % (19-41); Mean Corp Hgb Conc 28.5 g/dL (32-36); Mean Corpuscular Hgb 28.1 pg (27.0-32.0); Mean Corpuscular Volume 98.6 fL (81-99); Mean Platelet Vol. 13.5 fl (6.2-12.0); Monocyte% 9.1 % (0-10); NRBC Flagged by Analyzer 0 % (0-5); Neutrophil # 6.45 X10^3/uL (2.7-7.7); Neutrophil % 73.5 % (47-70); POSITIVE MORPHOLOGY YES; Platelet Count 142 K/mm3 (150-450); RBC Distribution Width CV 18.6 % (11.6-14.6); Red Blood Count 2.85 M/mm3 (4.2-5.4); White Blood Count 8.8 K/mm3 (4.4-11.0)
[2019-01-28 07:28] LABS: Differential Indicated SCAN CRITERIA MET
[2019-01-28 07:45] LABS: Anion Gap 2 (5-15); BUN 73 mg/dL (7-18); BUN/Creat Ratio 53.3 RATIO (10-20); Calcium,Total 8.7 mg/dL (8.5-10.1); Chloride 105 mmol/L (98-107); Creatinine, Serum 1.37 mg/dL (0.55-1.02); EST Glomerular Filtration Rate 39 mL/min (>60); Est Glom Filt Rate - Afr Amer 48 mL/min (>60); Glucose 111 mg/dL (74-106); Potassium 5.3 mmol/L (3.5-5.1); Sodium Level 141 mmol/L (136-145)
== END ==
LOC: OLS.WHLCAR 05:00
PROVIDERS: Visit Provider Family Medicine
DX: E11.00 Type 2 diabetes mellitus with hyperosmolarity without nonketotic hyperglycemic-hyperosmolar coma (NKHHC) (principal); S12.200D Unspecified displaced fracture of third cervical vertebra, subsequent encounter for fracture with routine healing; M62.81 Muscle weakness (generalized); R26.9 Unspecified abnormalities of gait and mobility; R13.12 Dysphagia, oropharyngeal phase
CPT/HCPCS: 36415; 80048; 85025